=== PATIENT | male | born 1990 | race Caucasian/White ===

== ENCOUNTER → 2019-06-17 | Emergency (ER) | payer SELFPAY, BC | END | disposition left against medical advice (07) | LOC: FTE 20:20 | DX: Z53.21 Procedure and treatment not carried out due to patient leaving prior to being seen by health care provider (principal) ==

== ENCOUNTER 2019-06-29 03:08 | Emergency (ER) | payer SELFPAY, OTHER ==
[2019-06-29] MEDS: KETOROLAC 15 MG INJ IV (04:42)
[2019-06-29] MEDS: METOCLOPRAMIDE 10 MG INJ IV (04:43)
[2019-06-29] MEDS: DIPHENHYDRAMINE 50 MG INJ IV (04:43)
[2019-06-29] MEDS: SOD CHLORIDE 0.9% 1,000 ML IV (04:49)
== END 2019-06-29 06:00 | disposition home or self-care (01) ==
LOC: FTE 03:08
DX: S06.0X1A Concussion with loss of consciousness of 30 minutes or less, initial encounter (principal); W18.49XA Other slipping, tripping and stumbling without falling, initial encounter; Y92.89 Other specified places as the place of occurrence of the external cause
CPT/HCPCS: 96361; 96374; 96375; 99284-25